=== PATIENT | male | born 2000 | race Caucasian/White ===

== ENCOUNTER 2022-03-24 14:46 | Emergency (ER) | payer BC | END 2022-03-24 16:14 | disposition home or self-care (01) | LOC: DL.ED 14:46 | DX: S60.041A Contusion of right ring finger without damage to nail, initial encounter (principal); W22.8XXA Striking against or struck by other objects, initial encounter; Y92.89 Other specified places as the place of occurrence of the external cause; Y99.0 Civilian activity done for income or pay | CPT/HCPCS: 73140-F8; 99282; 99283 ==

== ENCOUNTER 2024-10-25 21:29 | Emergency (ER) | payer BC, OTHER | END 2024-10-25 22:09 | disposition home or self-care (01) | LOC: DL.ED 21:29 | DX: H61.22 Impacted cerumen, left ear (principal) | CPT/HCPCS: 69209; 99282; 99282-25 ==